=== PATIENT | female | born 1970 | race Caucasian/White ===

== ENCOUNTER → 2023-04-26 | Emergency (ER) | payer OTHER ==
[~2023-04-26] MED LIST: KETOROLAC 30 MG/ML INJ ONE; MAGNESIUM SULFATE 1 gm IVPB 1 GM/100 ML BAG IV ONE; MORPHINE 4 MG/ML SYR ONE; NA CHLORIDE 0.9% 1,000 ML ONE; PROMETHAZINE INJ 25 MG/ML AMP ONE; TAMSULOSIN 0.4 MG SR CAP ONE
[2023-04-26 10:19] LABS: Absolute Lymphocytes (CBC) 1.8 K/uL (0.7-4.9); Hematocrit 38.4 % (36.0-45.0); Lymphocytes % 12.5 % (15.3-44.8); MCV 85.9 fL (80-100); MPV 7.6 fL (7.6-11.3); Platelets 304 thou/uL (152-406); RBC Red Blood Cell Count 4.47 M/uL (3.86-4.86)
[2023-04-26 10:45] LABS: Albumin 3.8 g/dL (3.4-5.0); Bilirubin Total 0.6 mg/dL (0.2-1.0); Potassium 4.4 mEq/L (3.5-5.1); Protein, Total 7.3 g/dL (6.4-8.2)
--- NOTE | 2023-04-26 11:51 | RAD REPORT ---
EXAM DESCRIPTION: CT - Abdomen Pelvis W Contrast - 04/26/2023 11:18 am CLINICAL HISTORY: FLANK PAIN COMPARISON: No comparisons TECHNIQUE: Thin cut axial CT imaging of the abdomen and pelvis was performed following intravenous a dministration of 100 mL Isovue 300. Multiplanar reformats were generated and reviewed. All CT scans are performed using dose optimization technique as appropriate and may include automated exposure control or mA/KV adjustment according to patient size. FINDINGS: No suspicious findings in the lung bases. The liver, spleen, adrenal glands, and pancreas show no suspicious findings. Gallbladder was surgical ly removed. Symmetric renal function is seen with no suspicious renal mass. Left moderate hydroureteronephrosis. 5 mm left vesicoureteral junction calculus. No dilated bowel loops or bowel wall thickening. No free air, free fluid or inflammatory stranding. N o hernia, mass or bulky lymphadenopathy. The urinary bladder is without significant finding. No suspicious bony findings. IMPRESSION: Moderate left hydroureteronephrosis. 5 mm obstructing left vesicoureteral junction calcu wilberto. The findings were communicated to Miguel Ángel Patten on 04/26/2023 at 11:46 hours.
[2023-04-26 12:44] LABS: Specific Gravity 1.011 (1.005-1.030); Transitional Epithelial <5 /HPF (None Seen); Urine Bacteria None Seen /HPF (<20); Urine Bilirubin NEGATIVE (Negative); Urine Blood 2+ (Negative); Urine Clarity Clear (Clear); Urine Color Light-Yellow (Yellow); Urine Glucose NEGATIVE (Negative); Urine Mucus Slight /HPF (None Seen); Urine Protein NEGATIVE (Negative); Urine RBC 21-50 /HPF (None Seen); Urine Urobilinogen Normal (Normal); Urine pH 6.5 (5.0-7.0)
--- NOTE | 2023-04-26 12:59 | ER ---
Nurse's Notes [facility] Name: Mara Lawrence Age: 52 yrs Sex: Female : 1970 Arrival Date: 04/26/2023 Time: 09:43 Bed 8 Private MD: Diagnosis: Calculus of kidney with calculus of ureter Presentation: 04/26 10:02 Chief complaint: Patient states: L low back pain radiating to flank and LLQ N/V, ph started at around 0430 this morning, hx of kidney stones, states that this feels similar. Coronavirus screen: Vaccine status: Patient reports receiving the 2nd dose of the covid vaccine. Ebola Screen: No symptoms or risks identified at this time. Initial Sepsis Screen: Does the patient meet any 2 criteria? No. Patient's initial sepsis screen is negative. Does the patient have a suspected source of infection? No. Patient's initial sepsis screen is negative. Risk Assessment: Do you want to hurt yourself or someone else? Patient reports no desire to harm self or others. Onset of symptoms was April 26, 2023. 10:02 Method Of Arrival: Ambulatory ph 10:02 Acuity: DOUGLAS 3 ph Triage Assessment: 10:05 General: Appears in no apparent distress. uncomfortable, Behavior is calm, cooperative. ph Pain: Complains of pain in left low back and left mid back Pain radiates to left flank and LLQ. Neuro: Lauren Agitation-Sedation Scale (RASS): 0 - Alert and Calm Level of Consciousness is awake, alert, obeys commands, Oriented to person, place, time, situation. Cardiovascular: Capillary refill < 3 seconds in bilateral fingers Patient's skin is warm and dry. Respiratory: Airway is compromised Respiratory effort is even, unlabored. GI: Reports nausea, vomiting. : Reports pain in left flank(s), lower quadrant(s). Derm: Skin is pink, warm \T\ dry. Musculoskeletal: Circulation, motion, and sensation intact. Range of motion: intact in all extremities. RECRUITING ADMINISTRATOR: 13:24 LMP N/A - control method, Not aa5 Historical: - Allergies: 10:04 Codeine; ph 10:04 Sulfa (Sulfonamide Antibiotics); ph - PMHx: 10:04 Hypercholesterolemia; ph - PSHx: 10:04 Cholecystectomy; Appendectomy; ph - Immunization history:: Adult Immunizations unknown. - Social history:: Smoking status: Patient denies any tobacco usage or history of. Screenin:06 [facility] ED Fall Risk Assessment (Adult) History of falling in the last 3 months, ph including since admission No falls in past 3 months (0 pts) Score/Fall Risk Level 0 - 2 = Low Risk Oriented to surroundings, Maintained a safe environment, Provided non-skid footwear, Hourly rounding (assess needs \T\ fall precautionary measures) done. Abuse screen: Denies threats or abuse. Denies injuries from another. Nutritional screening: No deficits noted. Tuberculosis screening: No symptoms or risk factors identified. Assessment: 10:21 Reassessment: SEE TRIAGE ASSESSMENT. ph 11:22 Reassessment: Patient appears in no apparent distress at this time. Patient and/or ph family updated on plan of care and expected duration. Pain level reassessed. Patient is alert, oriented x 3, equal unlabored respirations, skin warm/dry/pink. Vital Signs: 10:02 BP 163 / 86; Pulse 61; Resp 18; Temp 97.4; Pulse Ox 99% on R/A; Weight 90.72 kg; Height ph 5 ft. 8 in. ; Pain 9/10; 11:21 BP 155 / 78; Pulse 63; Resp 18; Pulse Ox 98% on R/A; ph 13:24 Pulse 64; Resp 17; Temp 97.8(TE); Pulse Ox 100% ; aa5 10:02 Body Mass Index 30.41 (90.72 kg, 172.72 cm) ph 10:02 Pain Scale: Adult ED Course: 09:45 Patient arrived in ED. im 09:45 Vivian Pittman PA-C is PHCP. sb4 09:45 Ebenezer Hutchins MD is Attending Physician. sb4 10:02 Naina Skinner RN is Primary Nurse. ph 10:04 Triage completed. ph 10:06 Arm band placed on Patient placed in an exam room, on a stretcher. ph 10:06 Patient has correct armband on for positive identification. Bed in low position. Call ph light in reach. Side rails up X 1. Pulse ox on. NIBP on. Door closed. Noise minimized. Warm blanket given. 10:08 Inserted saline lock: 22 gauge in right antecubital area, using aseptic technique. ds4 Blood collected. 11:20 CT Abd/Pelvis - IV Contrast Only In Process Unspecified. EDMS 12:59 Kaiser Nicole MD is Referral Physician. sb4 13:23 No provider procedures requiring assistance completed. IV discontinued, intact, aa5 bleeding controlled, No redness/swelling at site. Pressure dressing applied. 13:24 Provided Education on: discharge instructions. aa5 Administered Medications: 10:21 Drug: NS 0.9% IV 1000 ml IV at 1 bolus Per protocol; 1000 mL bolus Route: IV; Rate: 1 ph bolus; Site: right antecubital; 10:21 Drug: morphine IVP or IV 4 mg IVP once over 4 mins Route: IVP; Infused Over: 4 mins; ph Site: right antecubital; 13:23 Follow up: Response: No adverse reaction aa5 10:21 Drug: Promethazine IVP 12.5 mg IVP once Route: IVP; Site: right antecubital; ph 13:23 Follow up: Response: No adverse reaction aa5 12:41 Drug: Flomax PO 0.4 mg PO once Route: PO; ph 13:23 Follow up: Response: No adverse reaction aa5 12:41 Drug: Magnesium Sulfate IVPB 1 grams IVPB once over 1 hrs Route: IVPB; Infused Over: 1 ph hrs; Site: right antecubital; 13:23 Follow up: IV Status: Completed infusion; IV Intake: 100ml aa5 12:41 Drug: Ketorolac IVP 30 mg IVP once Route: IVP; Site: right antecubital; ph 13:22 Follow up: Response: No adverse reaction; Pain is decreased aa5 12:42 Drug: morphine IVP or IV 4 mg IVP once over 4 mins Route: IVP; Infused Over: 4 mins; ph Site: right antecubital; 13:23 Follow up: Response: No adverse reaction; Pain is decreased aa5 Medication: 10:06 VIS not applicable for this client. ph Intake: 13:23 IV: 100ml; Total: 100ml. aa5 Outcome: 12:59 Discharge ordered by . sb4 13:23 Discharged to home ambulatory, aa5 13:23 Condition: good 13:23 Discharge instructions given to patient, Instructed on discharge instructions, follow up and referral plans. medication usage, Demonstrated understanding of instructions, follow-up care, medications, Prescriptions given X 3, 13:24 Patient left the ED. aa5 Signatures: Dispatcher [employer] EDPaula Candelario RN RN aa5 Ravindra Forte ds4 Naina Skinner RN RN ph Brown, Sophia, PAReese PAReese sb4 Mae Christie
--- NOTE | 2023-04-26 12:59 | EDPHYS ---
Physician Documentation [facility] Name: Mara Lawrence Age: 52 yrs Sex: Female : 1970 Arrival Date: 04/26/2023 Time: 09:43 Bed 8 Private MD: ED Physician Ebenezer Hutchins HPI: 04/26 10:04 This 52 yrs old Female presents to ER via Ambulatory with complaints of Flank Pain. sb4 10:04 The patient presents with pain that is acute. sb4 10:05 The patient complains of pain in the right low back. The pain radiates to the left sb4 lower quadrant. Onset: The symptoms/episode began/occurred this morning. Associated signs and symptoms: Pertinent positives: nausea, vomiting, Pertinent negatives: dysuria, fever. The patient has experienced a previous episode, approximately 3 months ago, and the symptoms today are exactly the same. The patient has not recently seen a physician. RECRUITING OPERATIONS CONSULTANT: 13:24 LMP N/A - control method, Not aa5 Historical: - Allergies: 10:04 Codeine; ph 10:04 Sulfa (Sulfonamide Antibiotics); ph - PMHx: 10:04 Hypercholesterolemia; ph - PSHx: 10:04 Cholecystectomy; Appendectomy; ph - Immunization history:: Adult Immunizations unknown. - Social history:: Smoking status: Patient denies any tobacco usage or history of. ROS: 10:05 Constitutional: Negative for fever, chills, and weight loss, sb4 10:05 Abdomen/GI: Positive for abdominal pain, nausea and vomiting, 10:05 Back: Positive for flank pain, 10:05 All other systems are negative, Exam: 10:05 Constitutional: This is a well developed, well nourished patient who is awake, alert, sb4 and in no acute distress. Head/Face: Normocephalic, atraumatic. Eyes: Extra-ocular motions intact. Periorbital areas with no swelling, redness, or edema. ENT: Mucous membranes moist. Cardiovascular: Regular rate and rhythm with a normal S1 and S2. Respiratory: Lungs have equal breath sounds bilaterally, clear to auscultation and percussion. No rales, rhonchi or wheezes noted. No increased work of breathing, no retractions or nasal flaring. Abdomen/GI: Soft, non-tender, no distension. Skin: Warm, dry with normal turgor. Normal color with no rashes, no lesions, and no evidence of cellulitis. MS/ Extremity: Pulses equal, no cyanosis. Neurovascular intact. Full, normal range of motion. Neuro: Awake and alert, GCS 15, oriented to person, place, time, and situation. Motor strength 5/5 in all extremities. Sensory grossly intact. 10:05 Back: CVA tenderness, that is moderate, is noted on the left, Vital Signs: 10:02 BP 163 / 86; Pulse 61; Resp 18; Temp 97.4; Pulse Ox 99% on R/A; Weight 90.72 kg; Height ph 5 ft. 8 in. ; Pain 9/10; 11:21 BP 155 / 78; Pulse 63; Resp 18; Pulse Ox 98% on R/A; ph 13:24 Pulse 64; Resp 17; Temp 97.8(TE); Pulse Ox 100% ; aa5 10:02 Body Mass Index 30.41 (90.72 kg, 172.72 cm) ph 10:02 Pain Scale: Adult ph MDM: 09:56 Patient medically screened. sb4 10:05 Differential diagnosis: nephrolithiasis, pyelonephritis, UTI. sb4 11:42 Independent interpretation of the following test(s) in the Emergency Department CT sb4 Scan: My interpretation is my interpretation of the CT abdomen pelvis images are left sided hydroureteronephrosis. 12:58 Data reviewed: vital signs, nurses notes, lab test result(s), radiologic studies, I sb4 have discussed the patient's presentation/case with the attending Emergency Department Physician; and as a result, I will discharge patient. Counseling: I had a detailed discussion with the patient and/or guardian regarding the historical points, exam findings, and any diagnostic results supporting the discharge/admit diagnosis, lab results, radiology results, the need for outpatient follow up, a urologist, to return to the emergency department if symptoms worsen or persist or if there are any questions or concerns that arise at home. 04/26 10:04 Order name: CBC with Diff; Complete Time: 10:22 sb4 04/26 10:04 Order name: CMP; Complete Time: 10:52 sb4 04/26 10:04 Order name: Urinalysis w/ reflexes; Complete Time: 12:47 sb4 01/15 10:04 Order name: CT Abd/Pelvis - IV Contrast Only; Complete Time: 11:54 sb4 04/26 10:04 Order name: IV Saline Lock; Complete Time: 10:08 sb4 04/26 10:04 Order name: Labs collected and sent; Complete Time: 10:08 sb4 Administered Medications: 10:21 Drug: NS 0.9% IV 1000 ml IV at 1 bolus Per protocol; 1000 mL bolus Route: IV; Rate: 1 ph bolus; Site: right antecubital; 10:21 Drug: morphine IVP or IV 4 mg IVP once over 4 mins Route: IVP; Infused Over: 4 mins; ph Site: right antecubital; 13:23 Follow up: Response: No adverse reaction aa5 10:21 Drug: Promethazine IVP 12.5 mg IVP once Route: IVP; Site: right antecubital; ph 13:23 Follow up: Response: No adverse reaction aa5 12:41 Drug: Flomax PO 0.4 mg PO once Route: PO; ph 13:23 Follow up: Response: No adverse reaction aa5 12:41 Drug: Magnesium Sulfate IVPB 1 grams IVPB once over 1 hrs Route: IVPB; Infused Over: 1 ph hrs; Site: right antecubital; 13:23 Follow up: IV Status: Completed infusion; IV Intake: 100ml aa5 12:41 Drug: Ketorolac IVP 30 mg IVP once Route: IVP; Site: right antecubital; ph 13:22 Follow up: Response: No adverse reaction; Pain is decreased aa5 12:42 Drug: morphine IVP or IV 4 mg IVP once over 4 mins Route: IVP; Infused Over: 4 mins; ph Site: right antecubital; 13:23 Follow up: Response: No adverse reaction; Pain is decreased aa5 Disposition: 13:50 Co-signature as Attending Physician, Ebenezer Hutchins MD I reviewed the patient's care rt provided by the Advanced Practice Provider and agree with the diagnosis and treatment plan. Disposition Summary: 04/26/23 12:59 Discharge Ordered Notes: Location: Home sb4 Problem: new sb4 Symptoms: have improved sb4 Condition: Stable sb4 Diagnosis - Calculus of kidney with calculus of ureter sb4 Followup: sb4 - With: Kaiser Nicole MD - When: As needed - Reason: Recheck today's complaints, Re-evaluation by your physician Discharge Instructions: - Discharge Summary Sheet sb4 - Kidney Stones sb4 Forms: - Work release form aa5 - Medication Reconciliation Form sb4 - Thank You Letter sb4 - Antibiotic Education sb4 - Prescription Opioid Use sb4 - Patient Portal Instructions sb4 - Leadership Thank You Letter sb4 Prescriptions: - Flomax 0.4 mg Oral capsule - take 1 capsule ORAL route every day at bedtime; 30 capsule; Refills: 0, Product sb4 Selection Permitted - ketorolac 10 mg Oral tablet - take 1 tablet ORAL route every 8 hours for 3 days; 15 tablet; Refills: 0, sb4 Product Selection Permitted - Tramadol 50 mg Oral Tablet - take 1 tablet ORAL route every 8 hours as needed; 12 tablet; Refills: 0, sb4 Product Selection Permitted Signatures: Dispatcher [employer] Naina Franks, RN RN Vivian Magdaleno PA-C PA-C sb4 Ebenezer Hutchins MD MD rt Paula Lynch RN aa5
[2023-04-26 14:09] VITALS: BP 155/78
[2023-04-26 14:27] VITALS: TEMP 97.8; O2SAT 100
== END ==
LOC: ER 09:43
DX: N20.2 Calculus of kidney with calculus of ureter (principal); Z88.2 Allergy status to sulfonamides; Z88.5 Allergy status to narcotic agent
CPT/HCPCS: 96365; 85025; 81001; 36415; 80053; 74177; 96375; 99284; Q9967; J2550; J3475; J7030